=== PATIENT | male | born 1960 | race Caucasian/White ===

== ENCOUNTER 2018-05-23 12:19 | Emergency (ER) | payer BC ==
[~2018-05-23] VITALS: Ht 177.8 cm; Wt 79.4 kg
[~2018-05-23 12:19] MED LIST: AMLO-412 PO; AMLO5TAB13 PO; FENO160T8 PO; OME20T PO; OMEP20TA PO; SIMV-13 PO
[2018-05-23 12:27] VITALS: BP 112/77
== END 2018-05-23 14:08 | disposition left against medical advice (07) ==
LOC: ER 12:19
DX: K85.90 Acute pancreatitis without necrosis or infection, unspecified (principal); K21.9 Gastro-esophageal reflux disease without esophagitis; I10 Essential (primary) hypertension; E78.5 Hyperlipidemia, unspecified